=== PATIENT | male | born 1960 | race African-American/Black ===

== ENCOUNTER 2023-05-26 21:28 | Inpatient (IN) | payer SELFPAY ==
[2023-05-26 21:51] VITALS: BMI 32.0
[2023-05-26] MEDS ORDERED: Ondansetron PF 4 MG/2 ML Vial IVP PRN (22:21)
[2023-05-26] MEDS ORDERED: Acetaminophen 650 MG Suppository PR PRN (22:21)
[2023-05-26] MEDS ORDERED: Ondansetron ODT 4 MG TAB PO PRN (22:21)
[2023-05-26] MEDS ORDERED: Furosemide 40 MG/4 ML VIAL SLOW IVP SCH (22:45)
[2023-05-26] MEDS ORDERED: Lisinopril 5 MG TAB PO SCH (23:30)
[2023-05-27 01:24] LABS: Amphetamine Not Detected (NotDetected); Barbiturates Screen Not Detected (NotDetected); Benzodiazepine Screen Not Detected (NotDetected); Cocaine Metabolite Screen Detected (NotDetected); Methadone Not Detected (NotDetected); Methamphetamine Not Detected (NotDetected); Opiate Screen Not Detected (NotDetected); Oxycodone Screen Not Detected (NotDetected); Phencyclidine (PCP) Not Detected (NotDetected); THC/Cannabinoid Screen Not Detected (NotDetected); Tricyclic Screen Not Detected (NotDetected)
[2023-05-27 05:29] LABS: #Eosinphils 0.1 thou/uL (0.0-0.7); #Monocytes 0.8 thou/uL (0.11-0.59); #Neutrophils 3.2 thou/uL (1.40-6.50); %Basophils 0.3 % (0.0-1.0); %Eosinophils 1.5 % (0.0-10.0); %Lymphocytes 31.1 % (21.0-51.0); %Monocytes 13.3 % (0.0-10.0); %Neutrophils 53.5 % (42.0-75.0); Hematocrit 36.4 % (42.0-52.0); Hemoglobin 12.3 g/dL (14.0-18.0); Mean Corpuscular HGB CONC 33.8 g/dL (32.0-36.0); Mean Platelet Volume 10.5 fL (7.4-10.4); Platelet Count 302 10x3/uL (130-400); RBC Distribution Width 16.5 % (11.5-14.5); Red Blood Cell (RBC) Count 5.13 mill/uL (4.70-6.10)
[2023-05-27 05:40] LABS: Hemoglobin A1c 6.1 % (4.0-6.0)
[2023-05-27 06:01] LABS: ALT (SGPT) 55 U/L (8-55); AST (SGOT) 49 U/L (5-34); Albumin 3.2 g/dL (3.4-4.8); Alkaline Phosphatase 106 U/L (40-110); Anion Gap 15 mmol/L (10-20); BUN (Urea Nitrogen) 17 mg/dL (8.4-25.7); Bilirubin, Total 0.8 mg/dL (0.2-1.2); Calc. Creatinine Clearance 106 mL/min (70-130); Carbon Dioxide 22 mmol/L (23-31); Cardiac Risk 5.9 (Less than 4.5); Chloride 108 mmol/L (98-107); Cholesterol 135 mg/dl (< 200 Desired); Estimated GFR 76; Globulin 3.8 g/dL (2.4-3.5); Glucose 78 mg/dL (80-115); HDL Cholesterol 23 mg/dL (>60 Neg Risk); LDL Cholesterol, Calculated 101 mg/dL; Magnesium 1.9 mg/dL (1.6-2.6); Sodium 141 mmol/L (136-145); Triglycerides 56 mg/dL (Less than 150)
[2023-05-27 06:23] LABS: HBCM Index 0.05 S/CO (0-0.79); HBSAg Index 0.22 S/CO (0-0.99); Hep A IgM AB Non-Reactive S/CO (NonReactive); Hep A IgM S/CO 0.17 S/CO (0-0.79); Hep B Surf Ag Non-Reactive S/CO (NonReactive); Hep C IgG Ab Non-Reactive S/CO (NonReactive); Hep C Index 0.22 S/CO (0-0.79); Hepatitis B Core IgM Abs Non-Reactive S/CO (NonReactive)
[2023-05-27] MEDS: Furosemide 40 MG/4 ML VIAL SLOW IVP SCH ×2 (06:35→14:43)
[2023-05-27] MEDS ORDERED: Acetaminophen 650 MG/20.3 ML UDCUP PO PRN (08:00)
[2023-05-27] MEDS: Lisinopril 5 MG TAB PO SCH (08:14)
[2023-05-27] MEDS: traMADol HCl 50 MG TAB PO PRN (08:14)
[2023-05-27] MEDS ORDERED: Spironolactone 25 MG TAB PO SCH (11:00)
[2023-05-27] MEDS ORDERED: Potassium Chloride 20 MEQ TAB PO SCH (12:00)
[2023-05-27] MEDS ORDERED: Empagliflozin 10 MG TAB PO SCH (15:45)
[2023-05-28 04:56] LABS: #Eosinphils 0.1 thou/uL (0.0-0.7); #Monocytes 0.9 thou/uL (0.11-0.59); #Neutrophils 4.1 thou/uL (1.40-6.50); %Basophils 0.6 % (0.0-1.0); %Eosinophils 1.2 % (0.0-10.0); %Lymphocytes 26.7 % (21.0-51.0); %Monocytes 12.5 % (0.0-10.0); %Neutrophils 58.7 % (42.0-75.0); Hematocrit 37.3 % (42.0-52.0); Hemoglobin 12.4 g/dL (14.0-18.0); Mean Corpuscular HGB CONC 33.2 g/dL (32.0-36.0); Mean Corpuscular Hemoglobin 23.6 pg (27.0-31.0); Mean Platelet Volume 11.2 fL (7.4-10.4); Platelet Count 314 10x3/uL (130-400); RBC Distribution Width 16.4 % (11.5-14.5); Red Blood Cell (RBC) Count 5.25 mill/uL (4.70-6.10); White Blood Cell (WBC) Count 6.9 10x3/uL (4.8-10.8)
[2023-05-28] MEDS: Furosemide 40 MG/4 ML VIAL SLOW IVP SCH (05:20)
[2023-05-28 06:26] LABS: Anion Gap 15 mmol/L (10-20); Anisocytosis MODERATE=16-30 cells HPF (0-5); Calc. Creatinine Clearance 91 mL/min (70-130); Calcium 9.4 mg/dL (7.8-10.44); Carbon Dioxide 24 mmol/L (23-31); CellaVision Operator ID LAB.JMM; Chloride 104 mmol/L (98-107); Elliptocytes SLIGHT = 2-5 cells HPF (0-1); Estimated GFR 67; Glucose 72 mg/dL (80-115); Macrocytosis SLIGHT = 6-15 cells HPF (0-5); Platelet Adequacy Comment Platelets Normal; Potassium 3.9 mmol/L (3.5-5.1); Sodium 139 mmol/L (136-145); Target Cells SLIGHT = 2-5 cells HPF (0-1)
[2023-05-28 06:27] LABS: BUN (Urea Nitrogen) 18 mg/dL (8.4-25.7); Magnesium 1.7 mg/dL (1.6-2.6)
[2023-05-28] MEDS: Empagliflozin 10 MG TAB PO SCH (08:34)
[2023-05-28] MEDS: Spironolactone 25 MG TAB PO SCH (08:34)
[2023-05-28] MEDS: Lisinopril 5 MG TAB PO SCH (08:34)
[2023-05-28 08:55] LABS: Iron 46 ug/dL (65-175); Iron Binding Capacity, Total 373 mcg/dL (261-462)
[2023-05-28] MEDS: traMADol HCl 50 MG TAB PO PRN (10:51)
[2023-05-28] MEDS ORDERED: Magnesium Sulfate 3 GM in Sodium Chloride 0.9% 100 ML IVPB SCH (11:00)
[2023-05-28] MEDS ORDERED: Iron, Sodium Ferric Gluconate 250 MG in Sodium Chloride 0.9% 250 ML 250 ML IVPB SCH ×2 (12:00)
[2023-05-28] MEDS ORDERED: Potassium Chloride 20 MEQ TAB PO SCH (12:00)
[2023-05-28] MEDS ORDERED: Furosemide 20 MG/2 ML VIAL SLOW IVP SCH (18:00)
[2023-05-29 04:54] LABS: #Eosinphils 0.1 thou/uL (0.0-0.7); #Monocytes 0.7 thou/uL (0.11-0.59); #Neutrophils 3.1 thou/uL (1.40-6.50); %Basophils 0.5 % (0.0-1.0); %Eosinophils 1.6 % (0.0-10.0); %Lymphocytes 30.6 % (21.0-51.0); %Monocytes 12.2 % (0.0-10.0); %Neutrophils 54.8 % (42.0-75.0); Hematocrit 35.7 % (42.0-52.0); Hemoglobin 11.7 g/dL (14.0-18.0); Mean Corpuscular HGB CONC 32.8 g/dL (32.0-36.0); Mean Corpuscular Hemoglobin 23.2 pg (27.0-31.0); Mean Corpuscular Volume 70.7 fl (78.0-98.0); Mean Platelet Volume 10.6 fL (7.4-10.4); Platelet Count 292 10x3/uL (130-400); RBC Distribution Width 16.4 % (11.5-14.5); Red Blood Cell (RBC) Count 5.05 mill/uL (4.70-6.10); White Blood Cell (WBC) Count 5.7 10x3/uL (4.8-10.8)
[2023-05-29 05:21] LABS: Anion Gap 14 mmol/L (10-20); BUN (Urea Nitrogen) 18 mg/dL (8.4-25.7); Calc. Creatinine Clearance 80 mL/min (70-130); Calcium 9.1 mg/dL (7.8-10.44); Carbon Dioxide 27 mmol/L (23-31); Chloride 103 mmol/L (98-107); Estimated GFR 63; Glucose 81 mg/dL (80-115); Potassium 4.2 mmol/L (3.5-5.1); Sodium 140 mmol/L (136-145)
[2023-05-29] MEDS ORDERED: Furosemide 40 MG/4 ML VIAL SLOW IVP SCH (09:00)
[2023-05-29] MEDS: Lisinopril 5 MG TAB PO SCH (09:40)
[2023-05-29] MEDS: Spironolactone 25 MG TAB PO SCH (09:41)
[2023-05-29] MEDS: Empagliflozin 10 MG TAB PO SCH (09:42)
[2023-05-29] MEDS ORDERED: Iron, Sodium Ferric Gluconate 250 MG in Sodium Chloride 0.9% 250 ML 250 ML IVPB SCH (10:15)
[2023-05-29] MEDS ORDERED: Potassium Chloride 20 MEQ TAB PO SCH ×2 (12:00→18:45)
[2023-05-29] MEDS ORDERED: Furosemide 100 MG/10 ML VIAL SLOW IVP SCH (18:00)
[2023-05-29] MEDS: Carvedilol 3.125 MG TAB PO SCH (18:36)
[2023-05-30 04:25] LABS: #Eosinphils 0.2 thou/uL (0.0-0.7); #Monocytes 0.9 thou/uL (0.11-0.59); #Neutrophils 3.5 thou/uL (1.40-6.50); %Basophils 0.6 % (0.0-1.0); %Eosinophils 2.8 % (0.0-10.0); %Lymphocytes 27.3 % (21.0-51.0); %Monocytes 13.6 % (0.0-10.0); %Neutrophils 55.1 % (42.0-75.0); Hematocrit 34.3 % (42.0-52.0); Hemoglobin 11.5 g/dL (14.0-18.0); Mean Corpuscular HGB CONC 33.5 g/dL (32.0-36.0); Mean Corpuscular Hemoglobin 23.6 pg (27.0-31.0); Mean Corpuscular Volume 70.4 fl (78.0-98.0); Mean Platelet Volume 11.5 fL (7.4-10.4); Platelet Count 309 10x3/uL (130-400); RBC Distribution Width 16.7 % (11.5-14.5); Red Blood Cell (RBC) Count 4.87 mill/uL (4.70-6.10); White Blood Cell (WBC) Count 6.4 10x3/uL (4.8-10.8)
[2023-05-30 04:59] LABS: Anion Gap 18 mmol/L (10-20); BUN (Urea Nitrogen) 19 mg/dL (8.4-25.7); Calc. Creatinine Clearance 71 mL/min (70-130); Calcium 9.1 mg/dL (7.8-10.44); Carbon Dioxide 26 mmol/L (23-31); Chloride 100 mmol/L (98-107); Estimated GFR 54; Glucose 80 mg/dL (80-115); Magnesium 2.1 mg/dL (1.6-2.6); Potassium 4.4 mmol/L (3.5-5.1); Sodium 140 mmol/L (136-145)
[2023-05-30] MEDS: traMADol HCl 50 MG TAB PO PRN ×2 (08:01→18:07)
[2023-05-30] MEDS: Carvedilol 3.125 MG TAB PO SCH (08:01)
[2023-05-30] MEDS: Empagliflozin 10 MG TAB PO SCH (08:03)
[2023-05-30] MEDS: Spironolactone 25 MG TAB PO SCH (08:03)
[2023-05-30] MEDS: Lisinopril 5 MG TAB PO SCH (08:03)
[2023-05-30] MEDS ORDERED: ADENOSINE 60 MG/20 ML SDV ONE (08:03)
[2023-05-30] MEDS ORDERED: Communication Order-Pharmacy FS SCH (13:00)
[2023-05-30] MEDS ORDERED: HYDROcodone/Acetaminophen 10/325 mg Tablet PO PRN (15:44)
[2023-05-30] MEDS ORDERED: Ibuprofen 800 MG TAB PO PRN (15:59)
[2023-05-30] MEDS ORDERED: Carvedilol 3.125 MG TAB PO SCH (17:00)
[2023-05-30] MEDS: Carvedilol 6.25 MG TAB PO SCH (18:09)
[2023-05-31 04:29] LABS: #Eosinphils 0.2 thou/uL (0.0-0.7); #Monocytes 0.9 thou/uL (0.11-0.59); #Neutrophils 2.9 thou/uL (1.40-6.50); %Basophils 0.6 % (0.0-1.0); %Eosinophils 2.9 % (0.0-10.0); %Monocytes 17.4 % (0.0-10.0); %Neutrophils 54.7 % (42.0-75.0); Hematocrit 34.6 % (42.0-52.0); Hemoglobin 11.3 g/dL (14.0-18.0); Mean Corpuscular HGB CONC 32.7 g/dL (32.0-36.0); Mean Corpuscular Hemoglobin 23.4 pg (27.0-31.0); Mean Corpuscular Volume 71.8 fl (78.0-98.0); Mean Platelet Volume 10.8 fL (7.4-10.4); Platelet Count 279 10x3/uL (130-400); Red Blood Cell (RBC) Count 4.82 mill/uL (4.70-6.10); White Blood Cell (WBC) Count 5.2 10x3/uL (4.8-10.8)
[2023-05-31 04:51] LABS: Anion Gap 11 mmol/L (10-20); BUN (Urea Nitrogen) 19 mg/dL (8.4-25.7); Calc. Creatinine Clearance 72 mL/min (70-130); Calcium 9.1 mg/dL (7.8-10.44); Carbon Dioxide 28 mmol/L (23-31); Chloride 102 mmol/L (98-107); Estimated GFR 55; Glucose 97 mg/dL (80-115); Potassium 4.2 mmol/L (3.5-5.1); Sodium 137 mmol/L (136-145)
[2023-05-31 05:34] LABS: Anisocytosis MODERATE=16-30 cells HPF (0-5); CellaVision Operator ID lab.sh2; Large Platelets 16.5 % (0-5); Macrocytosis MODERATE=16-30 cells HPF (0-5); Microcytosis MODERATE=15-30 cells HPF (0-5); Ovalocytes MODERATE= 6-15 cells HPF (0-1); Platelet Adequacy Comment Platelets Normal; Poikilocytosis SLIGHT = 6-15 cells HPF (0-5); Target Cells SLIGHT = 2-5 cells HPF (0-1)
[2023-05-31] MEDS ORDERED: Potassium Chloride 20 MEQ TAB PO SCH (08:00)
[2023-05-31] MEDS: Carvedilol 6.25 MG TAB PO SCH ×2 (08:28→17:23)
[2023-05-31] MEDS: Spironolactone 25 MG TAB PO SCH ×2 (08:28→08:29)
[2023-05-31] MEDS: Lisinopril 5 MG TAB PO SCH (08:29)
[2023-05-31] MEDS: Empagliflozin 10 MG TAB PO SCH (08:29)
[2023-05-31] MEDS ORDERED: Furosemide 20 MG/2 ML VIAL SLOW IVP SCH (09:00)
[2023-05-31] MEDS ORDERED: predniSONE 20 MG TAB PO SCH (10:15)
[2023-06-01 05:03] LABS: Anion Gap 15 mmol/L (10-20); BUN (Urea Nitrogen) 24 mg/dL (8.4-25.7); Calc. Creatinine Clearance 71 mL/min (70-130); Calcium 9.5 mg/dL (7.8-10.44); Carbon Dioxide 23 mmol/L (23-31); Chloride 103 mmol/L (98-107); Estimated GFR 54; Glucose 105 mg/dL (80-115); Magnesium 2.2 mg/dL (1.6-2.6); Potassium 4.8 mmol/L (3.5-5.1); Sodium 136 mmol/L (136-145)
[2023-06-01] MEDS: Lisinopril 5 MG TAB PO SCH (08:44)
[2023-06-01] MEDS: Empagliflozin 10 MG TAB PO SCH (08:44)
[2023-06-01] MEDS: Spironolactone 25 MG TAB PO SCH (08:46)
[2023-06-01] MEDS: Carvedilol 6.25 MG TAB PO SCH ×2 (08:46→16:41)
[2023-06-01] MEDS: predniSONE 20 MG TAB PO SCH (08:47)
[2023-06-02] MEDS: Carvedilol 6.25 MG TAB PO SCH ×2 (04:54→16:27)
[2023-06-02] MEDS ORDERED: Sodium Chloride 0.9% 1,000 ML IV SCH ×2 (06:00→08:20)
[2023-06-02] MEDS ORDERED: Lidocaine 1% (PF) 30 ML VIAL ONE (06:46)
[2023-06-02] MEDS ORDERED: Heparin 10,000 UNITS/ 10 ML VIAL ONE (06:46)
[2023-06-02] MEDS ORDERED: Midazolam HCl 2 mg/2 ml Vial ONE (06:46)
[2023-06-02] MEDS ORDERED: fentaNYL 50 mcg/mL 1 mL Vial ONE (06:46)
[2023-06-02] MEDS ORDERED: Nitroglycerin 50 MG/250 ML BOT 0 ML ONE (06:46)
[2023-06-02] MEDS ORDERED: Metoprolol Tartrate 5 MG/5 ML VIAL ONE (07:51)
[2023-06-02 08:05] LABS: Anion Gap 9 mmol/L (10-20); BUN (Urea Nitrogen) 28 mg/dL (8.4-25.7); Calc. Creatinine Clearance 75 mL/min (70-130); Calcium 9.5 mg/dL (7.8-10.44); Carbon Dioxide 27 mmol/L (23-31); Chloride 105 mmol/L (98-107); Estimated GFR 64; Glucose 83 mg/dL (80-115); Magnesium 2.2 mg/dL (1.6-2.6); Potassium 4.1 mmol/L (3.5-5.1); Sodium 137 mmol/L (136-145)
[2023-06-02] MEDS ORDERED: Nitroglycerin 2% Ointment 1 INCH/1 GM Packet ONE (08:05)
[2023-06-02] MEDS ORDERED: Nitroglycerin 0.4 MG TAB (25 Tab Bottle) SL PRN (08:23)
[2023-06-02] MEDS ORDERED: Sodium Chloride 0.9% 200 ML IV PRN (08:23)
[2023-06-02] MEDS: predniSONE 20 MG TAB PO SCH (09:06)
[2023-06-02] MEDS: Spironolactone 25 MG TAB PO SCH (09:06)
[2023-06-02] MEDS: Lisinopril 5 MG TAB PO SCH (09:06)
[2023-06-02] MEDS: Empagliflozin 10 MG TAB PO SCH (09:07)
[2023-06-02] MEDS ORDERED: Aspirin 81 mg Enteric Coated Tablet PO SCH (13:00)
[2023-06-03 06:12] LABS: Anion Gap 14 mmol/L (10-20); BUN (Urea Nitrogen) 26 mg/dL (8.4-25.7); Calc. Creatinine Clearance 69 mL/min (70-130); Calcium 9.3 mg/dL (7.8-10.44); Carbon Dioxide 23 mmol/L (23-31); Chloride 108 mmol/L (98-107); Estimated GFR 59; Glucose 80 mg/dL (80-115); Magnesium 2.1 mg/dL (1.6-2.6); Potassium 4.3 mmol/L (3.5-5.1); Sodium 141 mmol/L (136-145)
[2023-06-03] MEDS: predniSONE 20 MG TAB PO SCH (08:37)
[2023-06-03] MEDS: Carvedilol 6.25 MG TAB PO SCH (08:37)
[2023-06-03] MEDS: Spironolactone 25 MG TAB PO SCH (08:38)
[2023-06-03] MEDS: Lisinopril 5 MG TAB PO SCH (08:38)
[2023-06-03] MEDS: Empagliflozin 10 MG TAB PO SCH (08:38)
[2023-06-03] MEDS ORDERED: Aspirin 81 mg Enteric Coated Tablet PO SCH (09:00)
[2023-06-03 15:19] VITALS: TEMP 98.1
[2023-06-03 16:43] VITALS: BP 116/74
[2023-06-03] MEDS ORDERED: Carvedilol 6.25 MG TAB PO SCH (17:00)
[2023-06-03] MEDS ORDERED: Rosuvastatin 20 MG TAB PO SCH (21:00)
[2023-06-04] MEDS ORDERED: Furosemide 20 MG TAB PO SCH (09:00)
== END 2023-06-03 18:47 | disposition home or self-care (01) | DRG 286 ==
LOC: 2SW 21:28 → OBSVTOIN 22:21
PROVIDERS: ADMIT Internal Medicine; ATTEND Family Medicine
PROC: 4A023N7 Measurement of Cardiac Sampling and Pressure, Left Heart, Percutaneous Approach (ICD-10-PCS; principal; 2023-06-02)
PROC: B2111ZZ Fluoroscopy of Multiple Coronary Arteries using Low Osmolar Contrast (ICD-10-PCS; 2023-06-02)
PROC: B2151ZZ Fluoroscopy of Left Heart using Low Osmolar Contrast (ICD-10-PCS; 2023-06-02)
DX: I13.0 Hypertensive heart and chronic kidney disease with heart failure and stage 1 through stage 4 chronic kidney disease, or unspecified chronic kidney disease (principal); I50.41 Acute combined systolic (congestive) and diastolic (congestive) heart failure; I47.20 Ventricular tachycardia, unspecified; N17.9 Acute kidney failure, unspecified; R74.01 Elevation of levels of liver transaminase levels; K76.0 Fatty (change of) liver, not elsewhere classified; F15.10 Other stimulant abuse, uncomplicated; F10.10 Alcohol abuse, uncomplicated; F14.10 Cocaine abuse, uncomplicated; E83.42 Hypomagnesemia; M10.9 Gout, unspecified; I25.10 Atherosclerotic heart disease of native coronary artery without angina pectoris; N18.9 Chronic kidney disease, unspecified; Z82.49 Family history of ischemic heart disease and other diseases of the circulatory system; Z83.3 Family history of diabetes mellitus
CPT/HCPCS: 36415; 78452; 80048; 80053; 80061; 80074; 80306; 82728; 83036; 83540; 83550; 83735; 85025; 93017; 93458; 93798; 97139; 99152; 99153; A9502; C1769; C1894; J0153; J1644; J1650; J1940; J2001; J2250; J2916; J3010; J3475; J3490; J7050; J7512; Q0162

== ENCOUNTER 2023-06-16 09:50 | Emergency (ER) | payer SELFPAY ==
[2023-06-16 12:25] LABS: #Monocytes 1.6 thou/uL (0.11-0.59); #Neutrophils 9.7 thou/uL (1.40-6.50); %Basophils 0.2 % (0.0-1.0); %Eosinophils 0.2 % (0.0-10.0); %Lymphocytes 10.4 % (21.0-51.0); %Monocytes 12.4 % (0.0-10.0); %Neutrophils 75.9 % (42.0-75.0); Hemoglobin 13.1 g/dL (14.0-18.0); Mean Corpuscular HGB CONC 33.6 g/dL (32.0-36.0); Mean Corpuscular Hemoglobin 23.2 pg (27.0-31.0); Mean Corpuscular Volume 69.1 fl (78.0-98.0); Platelet Count 319 10x3/uL (130-400); RBC Distribution Width 18.4 % (11.5-14.5); Red Blood Cell (RBC) Count 5.64 mill/uL (4.70-6.10); White Blood Cell (WBC) Count 12.7 10x3/uL (4.8-10.8)
[2023-06-16 12:51] LABS: Burr Cells MODERATE= 6-15 cells HPF (0-1); CellaVision Operator ID LAB.GE; Microcytosis MODERATE=15-30 cells HPF (0-5); Platelet Adequacy Comment Platelets Normal; Polychromasia SLIGHT = 2-3 cells HPF (0-2); Schistocytes SLIGHT = 2-5 cells HPF (0-1); Target Cells SLIGHT = 2-5 cells HPF (0-1)
[2023-06-16 12:59] LABS: Troponin I 0.022 ng/mL (< 0.028)
[2023-06-16 15:29] LABS: ALT (SGPT) 39 U/L (8-55); AST (SGOT) 35 U/L (5-34); Albumin 3.1 g/dL (3.4-4.8); Alkaline Phosphatase 143 U/L (40-110); Anion Gap 17 mmol/L (10-20); BUN (Urea Nitrogen) 32 mg/dL (8.4-25.7); Bilirubin, Total 2.2 mg/dL (0.2-1.2); Calc. Creatinine Clearance 0 mL/min (70-130); Calcium 9.5 mg/dL (7.8-10.44); Carbon Dioxide 21 mmol/L (23-31); Chloride 96 mmol/L (98-107); Estimated GFR 66; Globulin 4.6 g/dL (2.4-3.5); Glucose 92 mg/dL (80-115); Potassium 4.3 mmol/L (3.5-5.1); Protein, Total 7.7 g/dL (5.8-8.1); Sodium 130 mmol/L (136-145)
== END 2023-06-16 17:36 | disposition home or self-care (01) ==
LOC: ERS 09:50
DX: M79.89 Other specified soft tissue disorders (principal); M25.531 Pain in right wrist; I11.0 Hypertensive heart disease with heart failure; I50.9 Heart failure, unspecified; Z87.891 Personal history of nicotine dependence
CPT/HCPCS: 36415; 71045; 80053; 83880; 84484; 85025; 93005; 93923